=== PATIENT | female | born 1955 | race Asian ===

== ENCOUNTER 2017-02-01 06:27 | Day surgery (SDC) | payer OTHER ==
[2017-02-01] VITALS (12 sets, daily range): BP systolic 104–157; BP diastolic 67–86; PULSE 51–68; RESP 12–20; Ht 160 cm; Wt 62.0 kg
[~2017-02-01] VITALS: Ht 160 cm; Wt 62.0 kg
[2017-02-01] MEDS ORDERED: CEFAZOLIN 2 GM/50 ML (PMX) 50 ML IVPB ONE (06:30)
[2017-02-01] MEDS ORDERED: SOD CHLORIDE 0.9% 1,000 ML IV ONE (06:30)
--- NOTE | 2017-02-01 07:45 | RADRPT ---
PROCEDURE: XR Chest. CLINICAL INDICATION: Preoperative, right arm mass TECHNIQUE: Single frontal view of the chest was obtained. COMPARISON: None FINDINGS: The heart is within normal limits. The thoracic aorta is calcified. The lungs are clear. There is no pleural effusion or pneumothorax. RPTAT: AA IMPRESSION: No acute disease. Calcified aorta consistent with atherosclerotic disease. .Naveed Sapp MD, MD Date Time Electronically viewed and signed by .Naveed Sapp MD, on 02/01/2017 07:44 .S/
[2017-02-01] MEDS ORDERED: CHOLESTEROL PILL (08:01)
[2017-02-01] MEDS ORDERED: BP MEDS (08:01)
[2017-02-01 08:02] LABS: ADD SCAN DIFF NO
[2017-02-01 08:12] LABS: BASOPHILS % 0.4 % (0.0-2.0); EOSINOPHILS # 0.1 10^3/ul (0.0-0.5); HEMATOCRIT 38.1 % (37.0-47.0); HEMOGLOBIN 12.2 g/dl (12.0-16.0); LYMPHOCYTES # 1.8 10^3/ul (0.8-2.9); LYMPHOCYTES % 35.7 % (15.0-51.0); MEAN CORPUSCULAR VOLUME 87.6 fl (82.0-101.0); MEAN PLATELET VOLUME 10.4 fl (7.4-10.4); MONOCYTE # 0.3 10^3/ul (0.3-0.9); NEUTROPHIL # 2.9 10^3/ul (1.6-7.5); NEUTROPHILS % 56.7 % (39.0-77.0); PLATELET COUNT 181 10^3/UL (140-415); RED BLOOD COUNT 4.35 10^6/ul (4.20-5.40); RED CELL DISTRIBUTION WIDTH 12.8 % (11.5-14.5)
[2017-02-01 08:26] LABS: CALCIUM 9.1 mg/dl (8.4-10.2); CREATININE 0.63 mg/dl (0.44-1.00)
[2017-02-01 08:39] LABS: INR 0.91; PROTIME 12.2 Sec (12.2-14.2)
[2017-02-01 08:40] LABS: PARTIAL THROMBOPLASTIN TIME 33.5 Sec (25.0-35.0)
[2017-02-01] MEDS ORDERED: LIDOCAINE 2% (MDV) 20 ML INJ ONE (09:06)
[2017-02-01] MEDS ORDERED: BUPIVACAINE 0.5% (SDV) 30 ML INJ ONE (09:06)
[2017-02-01] MEDS ORDERED: BUPIVACAINE 0.25% (MPF) 30 ML INJ ONE (09:06)
[2017-02-01] MEDS ORDERED: PROPOFOL 20 ML ONE (09:13)
[2017-02-01] MEDS ORDERED: METOCLOPRAMIDE 10 MG INJ ONE (09:13)
[2017-02-01] MEDS ORDERED: MIDAZOLAM 1 MG/ML 2 ML INJ ONE (09:13)
[2017-02-01] MEDS ORDERED: CEFAZOLIN 1 GM INJ ONE (09:18)
[2017-02-01] MEDS ORDERED: KETOROLAC 30 MG INJ ONE (09:28)
[2017-02-01] MEDS ORDERED: OXYCODONE/ACETAMINOPHEN (5/325) TAB PO PRN ×2 (09:30)
[2017-02-01] MEDS ORDERED: DIPHENHYDRAMINE 50 MG INJ IV PRN (09:30)
[2017-02-01] MEDS ORDERED: HYDROmorphONE (0.2 MG/ML) 10ML SYG IV PRN ×3 (09:30)
[2017-02-01] MEDS ORDERED: METOCLOPRAMIDE 10 MG INJ IV PRN (09:30)
[2017-02-01] MEDS ORDERED: MEPERIDINE 25 MG INJ IV PRN (09:30)
[2017-02-01] MEDS ORDERED: ONDANSETRON 4 MG INJ IV PRN (09:30)
[2017-02-01] MEDS ORDERED: HYDROCODONE/APAP (5/325) TAB PO ONE (10:00)
--- NOTE | 2017-02-01 10:15 | OPR ---
DATE OF OPERATION: 02/01/2017 INDICATION: This is a 61-year-old female with a right arm mass. She requests surgical excision. R isks, alternatives, benefits, and personnel were discussed with patient. Patient expressed understa nding and consents to the operation. PREOPERATIVE DIAGNOSIS: Right arm mass. POSTOPERATIVE DIAGNOSIS: Right arm mass. OPERATION PERFORMED: 1. Excision of deep intramuscular right arm mass with incision size of 6 cm and mass size of 6 cm. 2. Localized adjacent tissue transfer with the use of skin flaps. SURGEON: Sheyla Grullon MD SPECIMEN: Right arm mass. COMPLICATIONS: None. ANESTHESIA: General. DESCRIPTION OF PROCEDURE: The patient was taken to the OR and prepped and draped in usual sterile f ashion. Surgical timeout was performed. IV antibiotics were given. Transverse incision was made o owen the right forearm mass. Dissection cautery was carried down to the muscle. The muscle had to b e a split with traction in order to identify the intramuscular mass. This mass was then well circums cribed. This was excised using cautery. There was good hemostasis. Due to the tissue defect, loca lized adjacent tissue transfer with the use of skin flaps was performed. Multilayer closure with in terrupted 3-0 Vicryl and skin clau. Local anesthesia was injected. Dry dressings were applied. Dictated By: SHEYLA MOHR/SHWETHA Conf#: [id number] DID#: [id number]
--- NOTE | 2017-02-01 17:58 | RADRPT ---
Vent Rate: 56 bpm RR Interval: 0 msec MI Interval: 152 msec QRS Duration: 94 msec QT Interval: 414 msec QTC Interval: 399 msec P-R-T Mobile: 22 - 70 - 57 degrees Sinus bradycardia Otherwise normal ECG Electronically Signed By: Phu Swartz [id number]
== END 2017-02-01 11:36 | disposition home or self-care (01) ==
LOC: SDS 06:27
PROVIDERS: ATTEND Surgery
DX: D17.21 Benign lipomatous neoplasm of skin and subcutaneous tissue of right arm (principal); I10 Essential (primary) hypertension; E78.5 Hyperlipidemia, unspecified
CPT/HCPCS: 14020; 71010; 80048; 85025; 85610; 85730; 88304; 93005; J0690; J1885; J2250; J2765; Z7512; Z7610